=== PATIENT | male | born 1930 | race Caucasian/White ===

== ENCOUNTER 2016-08-01 07:38 | Emergency (ER) | payer MEDICARE, OTHER ==
[~2016-08-01 07:38] MED LIST: ADVIL DPS200 MG PO; ASA CHILDREN'S81 MG PO; ASCORBIC ACID500 MG PO; BRILINTA90 MG PO; COLACE-DPS100 MG PO; COREG DPS3.125 MG PO; LIPITOR DPS20 MG PO; LUPRON DEPOT30 MG SQ; NITROSTAT0.4 MG SL; THERA1 EACH PO; VITAMIN D31000 UNIT PO
--- NOTE | 2016-08-02 08:23 | ER ---
ADMIT: 08/01/2016 RM/LOC: ER [facility] MR#: [id number] [place], [place] [id number] KARY VALENTIN [address] [place] [address] Emergency Room Report SEX: M AGE: 85 : 1930 DATE: 08/01/2016 TIME: 07. Please refer to my T-sheet for complete H and P. HISTORY OF PRESENT ILLNESS: Briefly, the patient is an 85-year-old who fell last night. Kind of got up too quick and turned, fell literally on his left chest, a little bit on his left knee. He has been walking okay, but his left chest wall has been hurting. No loss of conscious. No other injury. Did not hit his head or neck. He says he feels fine, does not want anything for pain, but he is worried about the left ribs. PHYSICAL EXAMINATION: VITAL SIGNS: Stable. Sats 98%. GENERAL: No acute distress. HEENT: Grossly normal. No neck pain. LUNGS: Clear. HEART: Regular. CHEST: He has point tenderness in the left anterior axillary line. No crepitus is noted. ABDOMEN: Soft. No pain over the spleen or liver. No CVA tenderness. EXTREMITIES: He has a very superficial contusion on his left knee, but he has full range of motion and no bony prominence abnormalities. EMERGENCY DEPARTMENT COURSE: X-ray of his left ribs and chest revealed no pneumothorax but a lateral 5th rib fracture. I offered pain medications, he did not want it. We had a discussion with him and they are ready for discharge. ASSESSMENT: 1. Left 5th rib fracture status post fall. 2. Left knee contusion. PLAN: Follow up with his primary. Deep breathe return if worse. I wrote him a script for [facility] if he needs them. Benji Che MD/ jocelyne JOB #: [id number] CC: Benji Che MD, Attending Physician Evelina Lozoya MD, Family Physician
== END 2016-08-01 08:48 | disposition home or self-care (01) ==
LOC: ER 07:38
DX: S22.32XA Fracture of one rib, left side, initial encounter for closed fracture (principal); S80.02XA Contusion of left knee, initial encounter; I10 Essential (primary) hypertension; I25.10 Atherosclerotic heart disease of native coronary artery without angina pectoris; Z95.5 Presence of coronary angioplasty implant and graft; Z85.46 Personal history of malignant neoplasm of prostate; Z90.79 Acquired absence of other genital organ(s); Z79.899 Other long term (current) drug therapy; Z79.818 Long term (current) use of other agents affecting estrogen receptors and estrogen levels; Z79.82 Long term (current) use of aspirin; W18.30XA Fall on same level, unspecified, initial encounter; Y92.009 Unspecified place in unspecified non-institutional (private) residence as the place of occurrence of the external cause